=== PATIENT | male | born 2000 | race Caucasian/White ===

== ENCOUNTER 2025-05-26 14:52 | Emergency (ER) | payer OTHER ==
[~2025-05-26] VITALS: Ht 188 cm; Wt 95.5 kg
[2025-05-26 15:01] VITALS: TEMP 97.5
--- NOTE | 2025-05-26 15:05 | Physician Documentation ---
History of Present Illness ~ Chief Complaint: Ankle pain Stated Complaint: R ANKLE PAIN/SWELLING Time Seen by MD: 16:22 HPI This is a 25-year-old male who presents with right ankle pain and swelling onset one day prior after rolling my ankle. Reports that he is able to walk and bear weight on the foot though it is very painful. Medication Reconciliation Allergies: Coded Allergies: No Known Allergies (Unverified , 05/26/25) Scheduled Ibuprofen (Ibuprofen), 1 TAB PO Q8H Past Medical History Past Medical History: No Pertinent History Review of Systems ROS As stated above in the HPI, otherwise all systems are reviewed and negative. Physical Exam Vital Signs: Temperature: 97.5, Source: Temporal, Heart Rate: 94, Respiratory Rate: 18, BP: 164/108, Pulse Oximetry: 99, Weight: 95.450 Physical Exam VITALS: Reviewed and as above. GENERAL: Alert, nontoxic appearing, no apparent distress. RESPIRATORY: No increased work of breathing, no respiratory distress, speaking in full clear sentences CV: Pedal pulse intact in right foot, brisk capillary refill to right foot and toes MUSCULOSKELETAL: Swelling without obvious deformity to right ankle and foot, right ankle and filter tank tender helper to palpation greatest on the lateral aspect SKIN: No ecchymosis to right foot NEURO: Sensation intact in right foot and toes Procedures Splinting Hand-Made Type: orthoglass Splint: Short-leg with stirrup Pre-Proc Neuro Vasc Exam: normal Post-Proc Neuro Vasc Exam: normal Splint Placed By: Certified Surgical Tech/First Assistant Tolerated Procedure Well?: yes, no complications Progress Results/Orders Results/Orders Orders - REINALDO MEDINA Ankle, Complete(3vw Min) (05/26/25 15:07) Foot, Complete (3vw Min) (05/26/25 15:07) Ortho Orders (05/26/25 ) Completed Orders - REINALDO MEDINA Ankle, Complete(3vw Min) (05/26/25 15:07) Foot, Complete (3vw Min) (05/26/25 15:07) Ketorolac Trometh 15mg/Ml Vial (Toradol (05/26/25 16:25) Vital Signs 05/26/25 05/26/25 05/26/25 05/26/25 15:01 16:01 17:20 17:42 Temp 97.5 Pulse 94 107 Resp 18 20 18 18 B/P (MAP) 164/108 157/105 (122) Pulse Ox 99 05/26/25 18:31 Pulse 78 Resp 14 B/P (MAP) 140/87 Pulse Ox 100 EKG/XRAY/CT/US/VASC/MRI Bone/Soft Tissue X-Ray (Ext.) #1: Additional Comment Exam: ANKLE, COMPLETE(3VW MIN) CLINICAL INDICATION: RT.Foot/Ankle Pain TECHNIQUE: 3 radiographic views of the right ankle were obtained. Comparison: None FINDINGS/IMPRESSION: There is acute mildly displaced fracture of the distal fibula with associated soft tissue edema. No dislocation. Electronically Signed by:YAEL FELIZ DO Date & Time: 05/26/251553 Dictated by: YAEL FELIZ DO Dictation date and time: 05/26/251553 I have reviewed and agree with the radiology report. I have reviewed and interpreted the imaging as: Displaced fracture of distal fibula Bone/Soft Tissue X-Ray (Ext.) #2: Additional Comment Exam: FOOT, COMPLETE (3VW MIN) CLINICAL INDICATION: RT.Foot/Ankle Pain TECHNIQUE: 3 radiographic views of the right foot were obtained. Comparison: None FINDINGS/IMPRESSION: There is acute mildly displaced fracture of the distal fibula with associated soft tissue edema. Electronically Signed by:YAEL FELIZ DO Date & Time: 05/26/251558 Dictated by: YAEL FELIZ DO Dictation date and time: 05/26/251558 I have reviewed and agree with the radiology report. I have reviewed and interpreted the imaging as: Displaced fracture of distal fibula Medical Decision Making Findings This 25-year-old male presented with right ankle pain onset one day prior after rolling his ankle, on physical exam the foot and ankle were swollen however there was no ecchymosis, the area was generally tender, the foot was neurovascularly intact. Imaging was obtained, imaging demonstrated a fracture at the distal fibula. Patient was medicated for pain and placed in a short-leg splint with stirrup by nurse orthopaedic, following placement of splint the limb remain neurovascularly intact. Patient is otherwise well-appearing with no other injuries on physical exam and is appropriate for outpatient follow up, patient is to follow up with orthopedist and primary care. Patient discharged with home care instructions, follow up instructions, and return to care precautions which he verbalized understanding of. General Diff Dx:Considerations: Include: Abrasion, Contusion, Fracture, Hematoma, Neurovascular injury, Open fracture, Sprain Ankle Diff Dx:Considerations: Include: DJD, Gout, Septic Departure Time of Disposition: 18:19 Disposition: HOME / SELF CARE / HOMELESS Impression: Primary Impression: Fracture of right ankle, lateral malleolus Qualified Codes: S82.61XA - Displaced fracture of lateral malleolus of right fibula, initial encounter for closed fracture Condition: Improved Discharge Instructions: Ankle Fracture Additional Instructions: Your ankle was fractured, do not bear weight on the affected foot until your told to do so by an orthopedist, please follow up with the orthopedist at the contact information provided. Please see the attached home care instructions for additional tips on caring for your broken ankle. Please use the ibuprofen as prescribed, do not use this medication for the next 10 hours as you received injection of Toradol in the emergency department. Please also follow up with your primary care provider in the next few days. Please return to the emergency department for any new or worsening concerning symptoms including but not li mited to numbness in your foot, worsening pain, or if your toes turn purple or white. Referrals: NO PRIMARY CARE PROVIDER (PCP) VERA TINSLEY Jr., MD Prescriptions Ibuprofen (Ibuprofen) 800 Mg Tablet 1 TAB PO Q8H for pain for 10 Days, #30 TAB 0 Refills Prov: REINALDO MEDINA 05/26/25 Education Educated: Patient Educated regarding: diagnosis, treatment, prognosis, need for follow up Signature Scribe Signature: No scribe Attestation: The note accurately reflects work and decisions made by me.ALEXIS Gallardo 05/27/25 10:47 REINALDO MEDINA May 26, 2025 15:05
--- NOTE | 2025-05-26 15:56 | RADIOLOGY REPORT ---
CLINICAL INDICATION: RT.Foot/Ankle Pain TECHNIQUE: 3 radiographic views of the right ankle were obtained. Comparison: None FINDINGS/IMPRESSION: There is acute mildly displaced fracture of the distal fibula with associated soft tissue edema. No dislocation.
--- NOTE | 2025-05-26 16:01 | RADIOLOGY REPORT ---
CLINICAL INDICATION: RT.Foot/Ankle Pain TECHNIQUE: 3 radiographic views of the right foot were obtained. Comparison: None FINDINGS/IMPRESSION: There is acute mildly displaced fracture of the distal fibula with associated soft tissue edema.
[2025-05-26] MEDS: ketorolac trometh 15mg/ml vial 15 MG/ML ML IM ONE (17:20)
[2025-05-26] MEDS ORDERED: IBUP-1986 PO (18:21)
[2025-05-26 18:31] VITALS: BP 140/87; PULSE 78; RESP 14; O2SAT 100
== END 2025-05-26 18:33 | disposition home or self-care (01) ==
LOC: ER 14:53
DX: S82.61XA Displaced fracture of lateral malleolus of right fibula, initial encounter for closed fracture (principal); Z79.899 Other long term (current) drug therapy; X50.1XXA Overexertion from prolonged static or awkward postures, initial encounter; Y93.89 Activity, other specified; Y92.89 Other specified places as the place of occurrence of the external cause; Y99.8 Other external cause status
CPT/HCPCS: 29515; 73610; 73630; 96372; 99284; J1885; A6449